=== PATIENT | male | born 1985 | race Caucasian/White ===

== ENCOUNTER 2021-01-12 00:04 | Emergency (ER) | payer OTHER ==
[~2021-01-12] VITALS: Ht 177.8 cm; Wt 109.0 kg
[2021-01-12 00:30] VITALS: BP 168/98
[2021-01-12] MEDS ORDERED: KETOROLAC 30 MG/ML VIAL. ONE (00:41)
[2021-01-12] MEDS ORDERED: PRED50TA PO (00:42)
--- NOTE | 2021-01-12 00:42 | PHYS DOC ---
General Adult EDM: Chief Complaint: BACK PAIN OR INJURY HPI: HPI: Patient is a 35 year old male with history of lumbar disc disease (L4-L5) who presents with recurrent low back pain. States that he was bending over 2 days ago and felt a pop sensation in his lower back. Has had pain since. Radiates down the left leg. Does have numbness and tingling down the left leg, but the pain is burning in nature. He denies true weakness, but is not moving it as much as it does cause pain. Denies saddle anesthesia or bowel/bladder incontinence. No history of IVDU. No immunosuppressive medications. No history of back surgeries. Has been taking only ibuprofen for back pain. Has been drinking etoh tonight. He does have a PCP that he is seen once, and can follow-up with. He follows with a chiropractor. Has never seen a physical therapist, neurosurgeon, or his pain specialist for this problem. Review of Systems: Review of Systems: Constitutional: Denies fever or chills. [] Eyes: Denies change in visual acuity. [] HENT: Denies nasal congestion or sore throat. [] Respiratory: Denies cough or shortness of breath. [] Cardiovascular: Denies chest pain or edema. [] GI: Denies abdominal pain, nausea, vomiting, bloody stools or diarrhea. [] : Denies dysuria. [] Musculoskeletal: Reports back pain with left-sided sciatica Integument: Denies rash. [] Neurologic: Denies headache, focal weakness or sensory changes. [] Endocrine: Denies polyuria or polydipsia. [] Lymphatic: Denies swollen glands. [] Psychiatric: Denies depression or anxiety. [] Heart Score: C/O Chest Pain: No Risk Factors: Risk Factors: DM, Current or recent (<one month) smoker, HTN, HLP, family history of CAD, obesity. Risk Scores: Score 0 - 3: 2.5% MACE over next 6 weeks - Discharge Home Score 4 - 6: 20.3% MACE over next 6 weeks - Admit for Clinical Observation Score 7 - 10: 72.7% MACE over next 6 weeks - Early Invasive Strategies Physical Exam: PE: Constitutional: Well developed, well nourished, no acute distress, non-toxic appearance. [] HENT: Normocephalic, atraumatic, bilateral external ears normal, oropharynx moist, no oral exudates, nose normal. [] Eyes: PERRLA, EOMI, conjunctiva normal, no discharge. [] Neck: Normal range of motion, no tenderness, supple, no stridor. [] Cardiovascular:Heart rate regular rhythm, no murmur [] Lungs & Thorax: Bilateral breath sounds clear to auscultation [] Abdomen: Bowel sounds normal, soft, no tenderness, no masses, no pulsatile masses. [] Skin: Warm, dry, no erythema, no rash. [] Back: No midline tenderness. Some tenderness over the left SI joint. [] Extremities: No tenderness, no cyanosis, no clubbing, ROM intact, no edema. [] Neurologic: Normal sensation grossly. Specifically 5/5 strength bilaterally in: L1-4: adduction of thighs L3-4: extension at knee L4-5: dorsiflexion of ankle L5: Extension of toes S1-S2: Plantarflexion of ankle EKG: EKG: [] Radiology/Procedures: Radiology/Procedures: [] Course & Med Decision Making: Course & Med Decision Making Pertinent Labs and Imaging studies reviewed. (See chart for details) Patient is a 35-year-old male with reported history of lumbar disc disease L4-L5 who presents with recurrent left-sided back pain with sciatica. He is neuro intact on examination. No weakness. No history of IVDU, immunosuppression, or fever/chills to suggest SCA. No urinary/bowel symptoms or saddle anesthesia to suggest cauda equina. In the absence of the above symptoms, do not feel that he requires emergent MRI. No trauma to suggest fracture, do not feel that CT imaging would be helpful. Will provide with ketorolac IM here. Plan for prednisone burst and Tylenol. He has an MRI scheduled through his chiropractor as an outpatient that he intends to get. I have advised him to follow-up with his PCP to discuss treatment options including physical therapy. [id number] Mikayla Disclaimer: Mikayla Disclaimer: This electronic medical record was generated, in whole or in part, using a voice recognition dictation system. Departure Departure Impression: Primary Impression: Back pain with sciatica Disposition: HOME / SELF CARE / HOMELESS Condition: STABLE Referrals: NO PCP (PCP) Patient Instructions: Sciatica Additional Instructions: If you have urinary or bowel incontinence, numbness in your groin, increasing leg weakness, or other new/concerning symptoms please return to emergency department for reevaluation. Otherwise please follow-up with your PCP and attend your scheduled MRI. For pain please use prednisone 50 mg daily for the next 5 days. Please also try Tylenol 1000 mg every 6 hours as needed for pain. Do not take more than this as it could be damaging to your liver. Scripts Prednisone (PREDNISONE) 50 Mg Tablet 1 TAB PO DAILY for 5 Days, #5 TAB 0 Refills Prov: MICKEY REED MD 01/12/21 MICKEY REED MD Jan 12, 2021 00:42
[2021-01-12] MEDS ORDERED: KETOROLAC 30 MG/ML VIAL. IM ONE (00:45)
== END 2021-01-12 00:52 | disposition home or self-care (01) ==
LOC: ER 00:04
DX: M54.42 Lumbago with sciatica, left side (principal); R20.2 Paresthesia of skin
CPT/HCPCS: 96372; 99283; J1885